=== PATIENT | female | born 1995 | race Two or more races ===

== ENCOUNTER 2016-04-22 16:06 | Emergency (ER) | payer OTHER ==
[~2016-04-22] VITALS: Ht 157.5 cm; Wt 59.0 kg
[~2016-04-22 16:06] MED LIST: IBUPROFEN600 MG ORAL; NITROFURANTOIN100 M2 ORAL; ZOFRAN4 M3 ORAL
[2016-04-22] MEDS ORDERED: Morphine Sulfate 4mg/ml Inj IVP ONE ×2 (16:30→18:00)
[2016-04-22 16:59] VITALS: BP 90/60
[2016-04-22 17:03] LABS: BASOPHILS % (AUTO) 1.3 % (0.0-2.0); EOSINOPHILS % (AUTO) 0.8 % (0.0-3.0); LYMPHOCYTES % (AUTO) 34.9 % (20.0-45.0); MEAN CORPUSCULAR HEMOGLOBIN 26.9 PG (27.0-31.0); MEAN CORPUSCULAR VOLUME 82 FL (80-99); MEAN PLATELET VOLUME 5.4 FL (6.5-10.1); MONOCYTES % (AUTO) 5.6 % (1.0-10.0); NEUTROPHILS % (AUTO) 57.4 % (45.0-75.0); PLATELET COUNT 455 K/UL (150-450); RED BLOOD COUNT 4.61 M/UL (4.20-5.40); WHITE BLOOD COUNT 9.6 K/UL (4.8-10.8)
[2016-04-22 17:27] LABS: ALANINE AMINOTRANSFERASE 8 U/L (3-33); ALBUMIN/GLOBULIN RATIO 1.2 (1.0-2.7); ANION GAP 20 (5-15); ASPARTATE AMINO TRANSFERASE 9 U/L (5-40); CALCIUM 8.5 mg/dL (8.6-10.2); CARBON DIOXIDE 20 mEQ/L (20-30); CHLORIDE 97 mEQ/L (98-107); CREATININE 0.6 mg/dL (0.5-0.9); GLOMERULAR FILTRATION RATE > 60 mL/min (>60); HEMOLYSIS 8; LIPASE 42 U/L (< 60); POTASSIUM 3.3 mEQ/L (3.4-4.9); SODIUM 137 mEQ/L (135-145); TOTAL PROTEIN 6.6 g/dL (6.6-8.7); TROPONIN I < 0.30 ng/mL (<=0.30)
[2016-04-22 17:38] LABS: CKMB < 1.5 ng/mL (< 3.8)
[2016-04-22] MEDS ORDERED: ACETAMINOPHEN-1 EAC1 ORAL (17:55)
[2016-04-22] MEDS ORDERED: Bacitracin Oint UD TOPIC ONE (18:00)
[2016-04-22 18:10] VITALS: BP 94/52
--- NOTE | 2016-04-22 18:35 | Emergency Room Report ---
History of Present Illness General Chief Complaint: Abdominal Pain Source: Patient Present Illness HPI 20-year-old female presents to ED for evaluation. Patient states she is " having a miscarriage" today. States while she was bleeding she got dizzy and fell in the bathroom. Hitting her head. Reported LOC. Patient is here complaining of pain to her jaw, lower cramping abdominal pain. Pain is in a 10 , throbbing, nonradiating. No other aggravating or relieving factors. Patient states she was seen here in March and noted to have a ongoing miscarriage. Patient was told that she will continue to bleed. She was supposed to followup with [facility]. Denies chest pain or shortness of breath. Denies any other associated symptoms Allergies: Coded Allergies: No Known Allergies (Unverified , 04/07/16) Patient History Past Medical History: none Past Surgical History: none Pertinent Family History: none Social History: Denies: alcohol use, drug use, smoking Now: No Immunizations: UTD Reviewed Nursing Documentation: PMH: Agreed, PSxH: Agreed Nursing Documentation-PMH Past Medical History: No History, Except For Review of Systems All Other Systems: negative except mentioned in HPI Physical Exam Vital Signs Date Time Temp Pulse Resp B/P Pulse Ox O2 Delivery O2 Flow Rate FiO2 04/22/16 16:08 98.1 55 26 120/79 99 04/22/16 16:59 Room Air Sp02 EP Interpretation: reviewed, normal General Appearance: no apparent distress, alert, GCS 15, non-toxic Head: normocephalic, other - abrasion to chin. bruising. TTP Eyes: bilateral eye PERRL, bilateral eye normal inspection ENT: normal ENT inspection Neck: normal inspection Respiratory: chest non-tender, lungs clear, normal breath sounds, speaking full sentences Cardiovascular #1: regular rate, rhythm, no edema Gastrointestinal: normal bowel sounds, non tender, soft, non-distended, no guarding, no rebound Rectal: deferred Genitourinary: normal inspection Musculoskeletal: normal inspection Neurologic: alert, oriented x3, responsive, motor strength/tone normal, sensory intact, speech normal Psychiatric: normal inspection Skin: normal inspection Lymphatic: normal inspection Medical Decision Making Diagnostic Impression: Primary Impression: Contusion of jaw Qualified Codes: S00.83XA - Contusion of other part of head, initial encounter Additional Impressions: Incomplete miscarriage Syncope Qualified Codes: R55 - Syncope and collapse ER Course Hospital Course 20-year-old female presents ED complaining of jaw pain and headache status post syncope. Was bleeding today from a ongoing miscarriage Differential diagnoses include: intracranial bleed, anemia, miscarriage, arrhythmia Clinical course Patient placed on stretcher. on cardiac cath technologist. After initial history and physical I ordered labs, EKG, IVFs, CT Brain, CT facial bone, pain meds labs reviewed- no leukocytosis, Hb/Hct stable, electrolytes ok, troponins negative, BHCG quant ~ 3000 (last visit ~ [id number]) CT Brain - unremarkable, CT facial bone negativ3 EKG - NSR Reassurance given to patient. No indication for transfusion. I explained to the patient that she will continue bleeding for the miscarriage. Should followup with [facility] I. I feel this is a highly complex case requiring extensive working including EKG/Rhythm strip, Xray/CT/US, Blood/urine lab work, repeat exams while in ED, and administration of strong opiates/narcotics for pain control, admission to hospital or close patient follow up. Diagnosis - syncope, contusion of jaw, incomplete miscarriage Stable and discharged to home with prescription for Tylenol #3. Followup with PMD. Return to ED if symptoms recur or worsen Labs Test 04/22/16 16:45 White Blood Count 9.6 K/UL (4.8-10.8) Red Blood Count 4.61 M/UL (4.20-5.40) Hemoglobin 12.4 G/DL (12.0-16.0) Hematocrit 37.7 % (37.0-47.0) Mean Corpuscular Volume 82 FL (80-99) Mean Corpuscular Hemoglobin 26.9 PG (27.0-31.0) Mean Corpuscular Hemoglobin Concent 33.0 G/DL (32.0-36.0) Red Cell Distribution Width 14.0 % (11.6-14.8) Platelet Count 455 K/UL (150-450) Mean Platelet Volume 5.4 FL (6.5-10.1) Neutrophils (%) (Auto) 57.4 % (45.0-75.0) Lymphocytes (%) (Auto) 34.9 % (20.0-45.0) Monocytes (%) (Auto) 5.6 % (1.0-10.0) Eosinophils (%) (Auto) 0.8 % (0.0-3.0) Basophils (%) (Auto) 1.3 % (0.0-2.0) Sodium Level 137 mEQ/L (135-145) Potassium Level 3.3 mEQ/L (3.4-4.9) Chloride Level 97 mEQ/L (98-107) Carbon Dioxide Level 20 mEQ/L (20-30) Anion Gap 20 (5-15) Blood Urea Nitrogen 10 mg/dL (7-23) Creatinine 0.6 mg/dL (0.5-0.9) Estimat Glomerular Filtration Rate > 60 mL/min (>60) Glucose Level 138 mg/dL (74-106) Calcium Level 8.5 mg/dL (8.6-10.2) Total Bilirubin 0.6 mg/dL (0.0-1.2) Aspartate Amino Transf (AST/SGOT) 9 U/L (5-40) Alanine Aminotransferase (ALT/SGPT) 8 U/L (3-33) Alkaline Phosphatase 69 U/L (35-104) Creatine Kinase MB < 1.5 ng/mL (< 3.8) Troponin I < 0.30 ng/mL (<=0.30) Total Protein 6.6 g/dL (6.6-8.7) Albumin 3.7 g/dL (3.5-5.2) Globulin 2.9 g/dL Albumin/Globulin Ratio 1.2 (1.0-2.7) Lipase 42 U/L (< 60) Human Chorionic Gonadotropin, Quant 3732 mIU/mL EKG Diagnostic Results Rate: normal Rhythm: NSR ST Segments: no acute changes ASA given to the pt in ED: No Rhythm Strip Diag. Results EP Interpretation: yes Rhythm: NSR, no PVC's, no ectopy CT/MRI/US Diagnostic Results CT/MRI/US Diagnostic Results : Imaging Test Ordered: CT head, CT facial bone Impression CT head-no acute process CT patient-no acute process Last Vital Signs Date Time Temp Pulse Resp B/P Pulse Ox O2 Delivery O2 Flow Rate FiO2 04/22/16 18:10 82 18 94/52 100 Room Air 04/22/16 17:11 98.0 Status: improved Disposition: HOME, SELF-CARE Condition: Stable Scripts Acetaminophen With Codeine (T#3) (TYLENOL #3 TAB*) Y Tab 1 TAB ORAL Q8H Y for For Pain, #20 TAB Prov: PARISA MANLEY M.D. 04/22/16 Patient Instructions: Miscarriage, [id number], Jaw Contusion, [id number] PARISA MANLEY M.D. Apr 22, 2016 18:35
--- NOTE | 2016-04-23 08:28 | Diagnostic Imaging Report ---
Indications: SYNCOPE Technique: Continuous helical CT imaging of the brain was performed with automatic exposure control on a Siemens sensation [address] scanner. Axial and coronal images were reconstructed at 5 mm slice thickness and interval. CTDI volume(s): 70 mGy Total DLP: 1425 mGy-cm Findings: Comparison: None. Intracranial anatomy is unremarkable. No evidence of mass or hemorrhage, other attenuation abnormality, mass effect, midline shift, hydrocephalus or increased intracranial pressure. Bone window images are unremarkable. Visualized paranasal sinuses and mastoid air cells are clear. IMPRESSION: Negative noncontrast CT scan of the brain . This correlates with Dr. Jean-Baptiste's preliminary report. The CT scanner at [facility] is accredited by the [employer] and the scans are performed using protocols designed to limit radiation exposure to as low as reasonably achievable to attain images of sufficient resolution adequate for diagnostic evaluation.
--- NOTE | 2016-04-23 08:30 | Diagnostic Imaging Report ---
Indications: Syncope, facial pain Technique: Continuous helical CT imaging of the face was performed with automatic exposure control on a Siemens sensation [address] scanner. Axial and coronal images were reconstructed at 3 mm slice thickness. CTDI volume(s): 28.2 mGy Total DLP: 54 mGy-cm Findings: Comparison: None No fracture identified. Paranasal sinuses, bilateral mastoid air cells clear. Orbital anatomy intact bilaterally. Superficial soft tissues unremarkable. IMPRESSION: Negative noncontrast CT scan of the base This correlates with Dr. Jean-Baptiste's preliminary report.
--- NOTE | 2016-04-24 19:45 | Cardiology Report ---
APPROVED REPORT EKG Measurement Heart [id number] Normal sinus rhythm Right bundle branch block Borderline ECG
== END 2016-04-22 18:15 | disposition home or self-care (01) ==
LOC: EMR 16:25
DX: S00.83XA Contusion of other part of head, initial encounter (principal); W19.XXXA Unspecified fall, initial encounter; Y92.012 Bathroom of single-family (private) house as the place of occurrence of the external cause; O03.4 Incomplete spontaneous abortion without complication; R55 Syncope and collapse
CPT/HCPCS: 36415; 70450; 70486; 80053; 82553; 83690; 84484; 84702; 85025; 96361; 96374; 96375; 99284; J2270; 93005